=== PATIENT | female | born 1985 | race Caucasian/White ===

== ENCOUNTER 2021-12-01 09:59 | Emergency (ER) | payer OTHER ==
[~2021-12-01] VITALS: Ht 170.2 cm; Wt 68.0 kg
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
--- NOTE | 2021-12-01 10:00 | NUR ---
[employer] AT BEDSIDE.
--- NOTE | 2021-12-01 10:11 | NUR ---
AT BEDSIDE FOR EVAL.
--- NOTE | 2021-12-01 10:20 | NUR ---
[facility] AT BEDSIDE
[2021-12-01 10:49] LABS: BASOPHILS % (AUTO) 0.4 % (0.0-2.0); EOSINOPHILS % (AUTO) 0.4 % (0.0-6.0); HEMATOCRIT 46 % (33-45); HEMOGLOBIN 16.1 g/dL (11.5-14.8); LYMPHOCYTES # (AUTO) 1.2 K/uL (0.8-4.8); LYMPHOCYTES % (AUTO) 12.9 % (20.0-44.0); MEAN CORPUSCULAR HGB CONC 35 g/dl (31.0-36.0); MEAN CORPUSCULAR VOLUME 90 fL (82-100); MONOCYTES # (AUTO) 0.6 K/uL (0.1-1.30); MONOCYTES % (AUTO) 6.5 % (2.0-12.0); NEUTROPHILS # (AUTO) 7.4 K/uL (1.8-8.9); NEUTROPHILS % (AUTO) 79.8 % (43.0-81.0); PLATELET COUNT (AUTO) 197 K/uL (150-450); RED BLOOD CELL COUNT(AUTO) 5.11 MIL/uL (4.0-5.2); WHITE BLOOD COUNT (AUTO) 9.2 K/uL (4.3-11.0)
[2021-12-01 11:24] LABS: CARBON DIOXIDE 23 mmol/L (21-32); CHLORIDE 97 mmol/L (98-107); CREATININE 1.1 mg/dL (0.6-1.3); GLUCOSE 166 mg/dL (74-106); POTASSIUM 3.1 mmol/L (3.5-5.1); SODIUM SERUM 135 mmol/L (136-145); UREA NITROGEN, BLOOD 5 mg/dL (7-18)
[2021-12-01 11:29] LABS: ALANINE AMINOTRANSFERASE 19 U/L (12-78); ALBUMIN 4.9 g/dL (3.4-5.0); ALCOHOL, BLOOD < 3 mg/dL (0-0); ALKALINE PHOSPHATASE 85 U/L (46-116); ASPARTATE AMINOTRANSFERASE 23 U/L (15-37); BILIRUBIN,DIRECT 0.2 mg/dL (0.0-0.2); BILIRUBIN,TOTAL 0.6 mg/dL (0.2-1.0); TOTAL PROTEIN, SERUM 8.7 g/dL (6.4-8.2)
[2021-12-01 11:31] LABS: ACETAMINOPHEN < 1 ug/ml (10-30)
[2021-12-01] MEDS: POTASSIUM CHLORIDE 20 MEQ TAB.PRT.SR PO ONE ×2 (13:15→18:25)
[2021-12-01] MEDS ORDERED: POTASSIUM CHLORIDE 20 MEQ TAB.PRT.SR PO ONE ×2 (13:57→18:22)
[2021-12-01 19:42] LABS: BILIRUBIN,URINE NEGATIVE (NEGATIVE); COLOR,URINE YELLOW (YELLOW); LEUKOCYTE ESTERASE ,URINE NEGATIVE (NEGATIVE); NITRITE, URINE NEGATIVE (NEGATIVE); PROTEIN,URINE NEGATIVE (NEGATIVE); UGLUCOSE NEGATIVE (NEGATIVE); UROBILINOGEN,URINE 0.2 EU/dL (0.2)
[2021-12-01 19:47] LABS: BACTERIA,URINE Few /HPF (None Seen); SQUAMOUS EPITHELIAL CELL,UR Many /HPF (None Seen); WBC,URINE 0-2 /HPF (0-3)
--- NOTE | 2021-12-01 19:50 | NUR ---
COVID ANTIGEN SWAB COLLECTED AND SENT TO LAB
--- NOTE | 2021-12-02 00:02 | NUR ---
pt is awake , kept confortable. provided food.
--- NOTE | 2021-12-02 03:12 | NUR ---
PT IS ASLEEP, KEPT COMFORTABLE
--- NOTE | 2021-12-02 06:40 | NUR ---
PSYCH CLINICIAN PAGED
--- NOTE | 2021-12-02 10:08 | NUR ---
SUNNY CARRILLO [phone] LEFT [facility].
--- NOTE | 2021-12-02 11:02 | NUR ---
GERARDO CALLED ON HER WAY.
--- NOTE | 2021-12-02 12:09 | NUR ---
GERARDO CHAND AT BEDSIDE FOR PSYCH EVAL.
[2021-12-02] MEDS ORDERED: QUETIAPINE FUMARATE 25 MG TABLET PO SCH (12:30)
[2021-12-02] MEDS ORDERED: LORAZEPAM 1 MG TABLET ONE (12:57)
[2021-12-02] MEDS ORDERED: QUETIAPINE FUMARATE 25 MG TABLET ONE (12:58)
[2021-12-02] MEDS ORDERED: LORAZEPAM 1 MG TABLET PO ONE (13:00)
--- NOTE | 2021-12-02 13:02 | NUR ---
Patient was assessed and still meets criteria for 5150. Patient's clinicals where faxed for possible admission to [facility], [facility] and [facility]. At the moment no beds available. Please follow up in the AM and re fax documents to above listed hospitals for patients transfer. Please ask doctor for more meds in the AM.
--- NOTE | 2021-12-03 07:16 | NUR ---
PATIENT AWAKE, AAOX3, ASKING FOR WARM BLANKETS
--- NOTE | 2021-12-03 10:04 | NUR ---
Patient's clinicals were re fax to [facility], [facility], [facility], and [facility]. Awaiting for response.
--- NOTE | 2021-12-03 10:59 | NUR ---
[facility] called and stated that pt. do not meet requirements for psych admission.
[2021-12-03 11:30] VITALS: BP 132/76
--- NOTE | 2021-12-03 11:48 | NUR ---
CALLED [facility] AND SET UP S TRANSPORT TO [facility] 1200
--- NOTE | 2021-12-03 11:50 | NUR ---
REPORTS GIVEN TO [facility]
--- NOTE | 2021-12-03 12:40 | NUR ---
PICKED UP BY TRANSPORT IN STABLE CONDITION
== END 2021-12-03 12:53 ==
LOC: ER 10:01
DX: F29 Unspecified psychosis not due to a substance or known physiological condition (principal); R45.851 Suicidal ideations; J45.909 Unspecified asthma, uncomplicated; F11.90 Opioid use, unspecified, uncomplicated; F15.90 Other stimulant use, unspecified, uncomplicated; Z20.822 Contact with and (suspected) exposure to COVID-19
CPT/HCPCS: 36415; 80048; 80076; 80143; 80307; 80320; 81001; 84703; 85025; 87426; 99285; C9803; G0480

== ENCOUNTER 2023-01-31 21:25 | Emergency (ER) | payer SELFPAY ==
[~2023-01-31] VITALS: Ht 170.2 cm; Wt 63.5 kg
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
[2023-01-31] MEDS ORDERED: IBUPROFEN 600 MG TABLET ONE (22:27)
[2023-01-31] MEDS ORDERED: IBUPROFEN 600 MG TABLET PO ONE (22:30)
--- NOTE | 2023-01-31 22:35 | NUR ---
URINE COLLECTED AND SENT TO LAB
--- NOTE | 2023-01-31 22:37 | NUR ---
PT SIGNED WAIVER FORM
--- NOTE | 2023-01-31 22:41 | NUR ---
[facility] AT BEDSIDE
--- NOTE | 2023-01-31 22:55 | NUR ---
[employer] AT PT'S BEDSIDE
[2023-01-31 23:00] LABS: BILIRUBIN,URINE NEGATIVE (NEGATIVE); COLOR,URINE YELLOW (YELLOW); LEUKOCYTE ESTERASE ,URINE NEGATIVE (NEGATIVE); NITRITE, URINE NEGATIVE (NEGATIVE); PH,URINE 6.5 (5.0-8.0); PROTEIN,URINE NEGATIVE (NEGATIVE); UGLUCOSE NEGATIVE (NEGATIVE); UROBILINOGEN,URINE 0.2 EU/dL (0.2)
--- NOTE | 2023-01-31 23:08 | NUR ---
PT TAKEN TO CT
--- NOTE | 2023-01-31 23:25 | NUR ---
PT BACK FROM CT
--- NOTE | 2023-01-31 23:49 | NUR ---
BLOOD COLLECTED SENT TO LAB
[2023-01-31 23:59] LABS: BASOPHILS % (AUTO) 0.7 % (0.0-2.0); EOSINOPHILS % (AUTO) 0.5 % (0.0-6.0); HEMATOCRIT 46 % (33-45); HEMOGLOBIN 15.1 g/dL (11.5-14.8); LYMPHOCYTES % (AUTO) 29.4 % (20.0-44.0); MEAN CORPUSCULAR HGB CONC 33 g/dl (31.0-36.0); MEAN CORPUSCULAR VOLUME 96 fL (82-100); MONOCYTES # (AUTO) 0.3 K/uL (0.1-1.30); MONOCYTES % (AUTO) 4.6 % (2.0-12.0); NEUTROPHILS # (AUTO) 4.4 K/uL (1.8-8.9); NEUTROPHILS % (AUTO) 64.8 % (43.0-81.0); PLATELET COUNT (AUTO) 233 K/uL (150-450); RED BLOOD CELL COUNT(AUTO) 4.78 MIL/uL (4.0-5.2); WHITE BLOOD COUNT (AUTO) 6.8 K/uL (4.3-11.0)
[2023-02-01 00:23] LABS: ALANINE AMINOTRANSFERASE 24 U/L (12-78); ALBUMIN 4.5 g/dL (3.4-5.0); ALKALINE PHOSPHATASE 79 U/L (46-116); ASPARTATE AMINOTRANSFERASE 21 U/L (15-37); BILIRUBIN,DIRECT 0.1 mg/dL (0.0-0.2); BILIRUBIN,TOTAL 0.5 mg/dL (0.2-1.0); CALCIUM, SERUM 9.3 mg/dL (8.5-10.1); CARBON DIOXIDE 24 mmol/L (21-32); CHLORIDE 101 mmol/L (98-107); CREATININE 0.8 mg/dL (0.6-1.3); GLUCOSE 73 mg/dL (74-106); POTASSIUM 3.2 mmol/L (3.5-5.1); SODIUM SERUM 138 mmol/L (136-145); TOTAL PROTEIN, SERUM 8.1 g/dL (6.4-8.2); UREA NITROGEN, BLOOD 7 mg/dL (7-18)
[2023-02-01 00:33] LABS: ALCOHOL, BLOOD < 3 mg/dL (0-0)
[2023-02-01] MEDS ORDERED: IBUP-1953 PO (01:16)
[2023-02-01] MEDS ORDERED: POTA20TA83 PO (01:16)
[2023-02-01] MEDS ORDERED: POTASSIUM CHLORIDE 20 MEQ TAB.PRT.SR PO ONE ×2 (01:21→01:30)
[2023-02-01 01:57] VITALS: BP 129/93
--- NOTE | 2023-02-01 01:57 | NUR ---
Patient discharged to home in stable condition. Written and verbal after care instructions given. Patient verbalizes understanding of instruction.
== END 2023-02-01 01:58 | disposition home or self-care (01) ==
LOC: ER 21:26
DX: S13.9XXA Sprain of joints and ligaments of unspecified parts of neck, initial encounter (principal); S93.602A Unspecified sprain of left foot, initial encounter; S20.213A Contusion of bilateral front wall of thorax, initial encounter; J45.909 Unspecified asthma, uncomplicated; Y08.89XA Assault by other specified means, initial encounter; Y93.89 Activity, other specified; Y92.009 Unspecified place in unspecified non-institutional (private) residence as the place of occurrence of the external cause; Y99.8 Other external cause status
CPT/HCPCS: 36415; 70450-TC; 71250-TC; 72125-TC; 73630-TC; 80048-TC; 80076-TC; 84703-TC; 85025-TC; G0480